=== PATIENT | male | born 1990 | race African-American/Black ===

== ENCOUNTER 2017-02-14 17:48 | Emergency (ER) | payer MEDICAID ==
[~2017-02-14] VITALS: Ht 177.8 cm; Wt 68.0 kg
[2017-02-14] MEDS ORDERED: BACITRACIN ZINC OINT UDPKT TOP ONE (21:30)
[2017-02-14] MEDS ORDERED: LIDOCAINE HCL 1%/EPI 1:200,000 30 ML VIAL MC ONE (21:30)
[2017-02-14 22:40] VITALS: BP 129/65
== END 2017-02-14 23:00 | disposition home or self-care (01) ==
LOC: ER 21:03
DX: S01.112A Laceration without foreign body of left eyelid and periocular area, initial encounter (principal); F12.10 Cannabis abuse, uncomplicated; Y08.89XA Assault by other specified means, initial encounter; Y93.89 Activity, other specified; Y92.89 Other specified places as the place of occurrence of the external cause; Y99.8 Other external cause status
CPT/HCPCS: 12011; 99283; X7700; Z7610; 99282

== ENCOUNTER 2017-02-24 20:15 | Emergency (ER) | payer MEDICAID ==
[~2017-02-24] VITALS: Ht 177.8 cm; Wt 68.0 kg
[2017-02-24 21:24] VITALS: BP 105/59
== END 2017-02-25 02:10 | disposition home or self-care (01) ==
LOC: ER 20:15
DX: S01.112D Laceration without foreign body of left eyelid and periocular area, subsequent encounter (principal); F12.10 Cannabis abuse, uncomplicated; X58.XXXD Exposure to other specified factors, subsequent encounter; Y92.89 Other specified places as the place of occurrence of the external cause; Y99.8 Other external cause status
CPT/HCPCS: 99282; Z7610